=== PATIENT | female | born 1940 | race Caucasian/White ===

== ENCOUNTER 2019-03-15 05:30 | Observation (INO) ==
--- NOTE | 2019-03-15 06:04 | PROVIDER DOCUMENTATION ---
HPI-Chest Pain - General Chief Complaint: Chest Pain Stated Complaint: ARM PAIN/CHEST PAIN/NUMBNESS Time Seen by Provider: 03/15/19 05:48 Source: patient, family Allergies/Adverse Reactions: Patient Allergies Allergy/AdvReac Type Severity Reaction Status Date / Time Penicillins Allergy Mild RASH Verified 03/15/19 05:57 Sulfa (Sulfonamide Allergy Mild reyes Verified 03/15/19 05:57 Antibiotics) cefaclor [From Ceclor] Allergy Unknown Unknown Verified 03/15/19 05:57 codeine AdvReac Mild sick to Verified 03/15/19 05:57 stomach morphine AdvReac Mild sick to Verified 03/15/19 05:57 stomach nitrofurantoin AdvReac Mild upset Verified 03/15/19 05:57 [From Macrobid] stomach nitrofurantoin AdvReac Mild upset Verified 03/15/19 05:57 macrocrystalline * stomach [From Macrobid] Home Medications: Home Medication List Medication Instructions Recorded Confirmed Last Taken Type Amlodipine [Norvasc] 10 mg PO QAM 02/02/13 03/15/19 06/07/17 History Levothyroxine [Synthroid] 112 microgm PO QAM 02/02/13 03/15/19 06/07/17 History Metoprolol Succinate E.r. [Toprol 100 mg PO QAM 02/02/13 03/15/19 06/07/17 History Xl] Aspirin [Ecotrin] 81 mg PO QAM 06/28/15 03/15/19 06/07/17 History Calcium Carbonate [Calcium] 600 mg PO QAM 06/28/15 03/15/19 06/07/17 History SIMVAstatin [Zocor] 10 mg PO QHS #30 tablet 06/28/15 03/15/19 06/06/17 Rx Cholecalciferol (Vitamin D3) 2,000 units PO QAM 09/06/16 03/15/19 06/07/17 History [Vitamin D3] Fexofenadine HCl [Allergy Relief] 180 mg PO QAM 09/06/16 03/15/19 06/07/17 History Metformin E.r. [Glucophage Xr] 500 mg PO QAM 09/06/16 03/15/19 06/07/17 History Irbesartan 300 mg PO QAM 11/12/16 03/15/1918 History - History of Present Illness-CP Nature of Presenting Problem: Patient is a 78 year old white female with cognitive dysfunction,hyperlipidemia,diabetes, and recurrent noncardiac chest pain for past year, already evaluated by heart cath in [place] which showed no blockages, who presents with same anterior chest pain since tonight. Here with . Chest Pain Radiation: reports: no radiation Quality of Pain: reports: other (unable to describe) Onset/Duration: other (over 1 year ago) Review of Systems - Adult - REVIEW OF SYSTEMS - ADULT ROS:: limited per condition Constitutional: denies: chills, fever Eyes: reports: no symptoms reported Ears, Nose, Mouth & Throat: reports: no symptoms reported Cardiovascular: reports: chest pain Respiratory: reports: no symptoms reported Gastrointestinal: reports: no symptoms reported Genitourinary: reports: no symptoms reported Musculoskeletal: reports: no symptoms reported Integumentary: reports: no symptoms reported Neurological: reports: no symptoms reported Psychiatric: reports: no symptoms reported Endocrine: reports: no symptoms reported Hematologic/Lymphatic: reports: no symptoms reported Allergic/Immunologic: reports: no symptoms reported All Other Systems: Reviewed and Negative Past History - Adult - PAST MEDICAL HISTORY-ADULT Review of Records: reports: Old Records Reviewed, Nursing Assessment Review, Medications Reviewed, Social history reviewed & non-contributory. Major Childhood Illnesses: reports: denies history Cardiovascular: reports: cardiac disease, HTN Respiratory: reports: denies history Gastrointestinal: reports: denies history Obstetrical/Gynecological: reports: denies history Genitourinary: reports: denies history Musculoskeletal: reports: denies history Neurological: reports: denies history Endocrine/Immune: reports: denies history Other Conditions: reports: cataract/glaucoma, eye problems/injury - PRIOR SURGERIES/PROCEDURES Surgical/Procedure History: reports: breast - IMMUNIZATION STATUS Childhood Immunizations: See Nurse Assessment Flu Vaccine: See Nurse Assessment - FAMILY HISTORY Family History: reviewed, not pertinent - SOCIAL HISTORY Smoking: denies Substance Use: denies Alcohol Use Frequency: never Living Situation: family Physical Exam-General - CONSTITUTIONAL General Appearance: alert, no apparent distress, other (demented, poor recall, flat affect) - EYES Eyes: other (clear) - HEAD, EARS, NOSE, MOUTH & THROAT HENMT: moist mucous membranes - NECK Neck: non-tender, full range of motion, supple - RESPIRATORY Respiratory: lungs clear, no respiratory distress, no accessory muscle use - CARDIOVASCULAR Cardiovascular: regular rate, rhythm - GASTROINTESTINAL (ABDOMEN) Abdominal Exam: normal bowel sounds, non tender, soft - LYMPHATIC Lymphatic: no adenopathy - MUSCULOSKELETAL Back Exam: normal inspection, no CVA tenderness Extremity: normal range of motion, non-tender - SKIN Integumentary: normal color, normal turgor, warm/dry - NEUROLOGIC Neurologic: grossly normal - PSYCHIATRIC Psych/Mental Status: oriented x 3, anxious - HEART Score HEART Score: History: Moderately Suspicious HEART Score: ECG: Normal HEART Score: Age: > or = 65 Years HEART Score: Risk Factors for Atherosclerotic Disease: 1 or 2 Risk Factors HEART Score: Troponin: < or = Normal Limit Total HEART Score:: 4 Progress - PLAN OF CARE/RESULTS Progress/Plan/Lab Results: Vital Signs - 8 hr 03/15/19 05:32 03/15/19 05:46 03/15/19 05:48 Temperature 97.5 F L Pulse Rate 92 H 89 Respiratory Rate 20 20 Blood Pressure 161/80 161/80 O2 Sat by Pulse Oximetry 99 99 03/15/19 06:00 03/15/19 07:00 03/15/19 07:01 Temperature Pulse Rate 86 73 74 Respiratory Rate 21 18 19 Blood Pressure 137/69 O2 Sat by Pulse Oximetry 98 96 97 03/15/19 07:28 03/15/19 07:31 Temperature Pulse Rate 82 76 Respiratory Rate 17 17 Blood Pressure 161/71 147/62 O2 Sat by Pulse Oximetry 99 98 Laboratory Results - last 24 hr 03/15/19 03/15/19 03/15/19 06:16 06:16 06:16 WBC 4.88 RBC 5.03 Hgb 14.3 Hct 43.2 MCV 85.9 MCH 28.4 MCHC 33.1 RDW Std Deviation 14.0 Plt Count 193 MPV 12.0 H Neut % (Auto) 50.4 Lymph % (Auto) 42.2 [place] % (Auto) 6.4 Eos % (Auto) 0.8 Baso % (Auto) 0.2 Neut # (Auto) 2.46 Lymph # (Auto) 2.06 [place] # (Auto) 0.31 Eos # (Auto) 0.04 Baso # (Auto) 0.01 D-Dimer, Quantitative Sodium Potassium Chloride Carbon Dioxide Anion Gap BUN Creatinine Estimated GFR/1.73 m2 BUN/Creatinine Ratio Glucose Calculated Osmolality Calcium Total Bilirubin AST ALT Alkaline Phosphatase Creatine Kinase 39 Troponin T < 0.010 Total Protein Albumin Globulin Albumin/Globulin Ratio Urine Source Urine Color Urine Turbidity Urine pH Ur Specific [place] Urine Protein Ur Glucose (Stick) Ur Ketones (Stick) Urine Blood Urine Nitrite Urine Bilirubin Urobilinogen Dipstick Urine Leukocytes Urine WBC (Auto) Urine RBC (Auto) U Epithel Cells (Auto) Urine Bacteria (Auto) 03/15/19 03/15/19 03/15/19 06:16 06:16 07:38 WBC RBC Hgb Hct MCV MCH MCHC RDW Std Deviation Plt Count MPV Neut % (Auto) Lymph % (Auto) [place] % (Auto) Eos % (Auto) Baso % (Auto) Neut # (Auto) Lymph # (Auto) [place] # (Auto) Eos # (Auto) Baso # (Auto) D-Dimer, Quantitative 0.53 H Sodium 138 Potassium 3.9 Chloride 98 Carbon Dioxide 26 Anion Gap 14 BUN 10 Creatinine 0.7 Estimated GFR/1.73 m2 > 60 BUN/Creatinine Ratio 14 Glucose 124 H Calculated Osmolality 276 Calcium 10.0 Total Bilirubin 1.12 H AST 19 ALT 12 Alkaline Phosphatase 59 Creatine Kinase Troponin T Total Protein 8.0 Albumin 5.0 Globulin 3.0 Albumin/Globulin Ratio 1.7 Urine Source CLEAN CATCH Urine Color STRAW Urine Turbidity CLEAR Urine pH 7.5 Ur Specific [place] 1.007 Urine Protein NEGATIVE Ur Glucose (Stick) NEGATIVE Ur Ketones (Stick) NEGATIVE Urine Blood TRACE A Urine Nitrite NEGATIVE Urine Bilirubin NEGATIVE Urobilinogen Dipstick NORMAL Urine Leukocytes NEGATIVE Urine WBC (Auto) <10 Urine RBC (Auto) <10 U Epithel Cells (Auto) <10 Urine Bacteria (Auto) NEGATIVE Orders Category Date Time Status Admit - [facility] Routine AdmDCTranf 03/15/19 08:19 Active Cardiac Monitoring DIRECTED Care 03/15/19 05:49 Active FSBS/Accucheck Result AC + HS Care 03/15/19 08:19 Active Notify MD if DIRECTED Care 03/15/19 08:19 Active NPO Except MEDICATIONS Diet 03/15/19 08:01 Active CHEST-PORTABLE [RAD] Stat Exams 03/15/19 05:[address] ANGIOGRM PULMONARY ARTERIES [CT] Stat Exams 03/15/19 07:58 Ordered MYOCARDIAL PERF SCAN, STR/REST [NM] Stat Exams 03/15/19 08:01 Ordered A1C HGB W EST AVG GLUCOSE [CHEM] Stat Lab 03/15/19 06:16 Received CBC WITH ELECTRONIC DIFF [HEME] Stat Lab 03/15/19 06:16 Completed CK PROFILE [SP CHEM] Stat Lab 03/15/19 06:16 Completed CK TOTAL [CHEM] Q8H Lab 03/16/19 00:30 Uncollected CK TOTAL [CHEM] Q8H Lab 03/15/19 08:30 Uncollected CK TOTAL [CHEM] Q8H Lab 03/15/19 16:30 Uncollected CMP [COMPREHENSIVE METABOLIC PANEL] [CHEM] Stat Lab 03/15/19 06:16 Completed D-DIMER [COAG] Stat Lab 03/15/19 06:16 Completed LIPID PROFILE W/DIR LDL [LIPIDS] Stat Lab 03/15/19 06:16 Received TROPONIN T Q8H Lab 03/16/19 00:30 Uncollected TROPONIN T Q8H Lab 03/15/19 08:30 Uncollected TROPONIN T Q8H Lab 03/15/19 16:30 Uncollected TROPONIN T Stat Lab 03/15/19 06:16 Completed UA NIMS W/REFLEX CULT [URINALYSIS] Stat Lab 03/15/19 07:38 Completed Acetaminophen [Tylenol] Med 03/15/19 08:19 Active 650 mg PO Q6H PRN PRN Amlodipine [Norvasc] Med 03/15/19 09:00 Active 10 mg PO QAM Aspirin EC Med 03/16/19 09:00 Active 81 mg PO DAILY Calcium Carbonate [Caltrate 600] Med 03/15/19 09:00 Ordered 600 mg PO QAM Cholecalciferol (Vitamin D3) [Vitamin D3] Med 03/15/19 09:00 Ordered 2,000 units PO QAM Enoxaparin [Lovenox] Med 03/15/19 08:19 Active 30 mg SUBQ Q24H Fexofenadine [Michelle] Med 03/15/19 09:00 Ordered 180 mg PO QAM Insulin Human Regular [Humulin R] Med 03/15/19 11:00 Active See Protocol SUBQ 0700,1100,1600,2100 Irbesartan Med 03/15/19 09:00 Ordered 300 mg PO QAM Levothyroxine [Synthroid] Med 03/15/19 09:00 Ordered 112 microgm PO QAM Metoprolol Succinate E.r. [Toprol Xl] Med 03/15/19 09:00 Ordered 100 mg PO QAM Morphine Med 03/15/19 08:19 Discontinued See Dose Instructions IV Q5M PRN PRN Nitroglycerin Sl [Nitroglycerin] Med 03/15/19 08:19 Active 0.4 mg SL Q5M PRN PRN Omeprazole [Prilosec] Med 03/16/19 07:00 Active 20 mg PO DAILY@0700 Ondansetron [Zofran] Med 03/15/19 08:19 Active 4 mg IV Q4H PRN PRN SIMVAstatin [Zocor] Med 03/15/19 21:00 Ordered 10 mg PO QHS Oxygen Device Stat Oth 03/15/19 05:51 Active EKG [EKG] Routine Ther 03/16/19 08:14 Ordered EKG [EKG] Routine Ther 03/15/19 08:01 Ordered EKG [EKG] Stat Ther 03/15/19 05:49 Draft Echo Spec/Color Doppler Routine Ther 03/15/19 08:19 Ordered Venous U/S Bilateral Legs Routine Ther 03/15/19 07:58 Ordered Transfer/Admit Order [TRANSFER] Routine Transfer 03/15/19 08:14 Ordered Result Diagrams: 03/15/19 06:16 03/15/19 06:16 - REASSESSMENT Reassessment #1 Time Reassessed: 07:36 (Assumed care @ S/O. Seen and she is a very vague historian. Has has epigastric/lower sternal CP intermitently for a month. She cannot reliably characterize pain, duration. Nothing makes worse, appears to be relieved with rest. Lungs clear. Heart RRR) - EKG 1 Time of EKG reading by physician:: 05:46 EKG Read and Signed by:: Milton Giordano Rate: 88 Rhythm: NSR [place]: normal QRS: LVH Prior EKG Comparison: unchanged from prior (of 05/2017) Comments: no STEMI - CONSULTS/PCP/HOSPITALIST Notification #1 *Consult/PCP/Hospitalist*: Hospitalist Time Discussed: 08:10 Consult Disposition: Will see in ED, Admit - CHANGE OF SHIFT REPORT (ED Provider) 1 Report Given and Care Transferred to:: Dr. Pablo Time of Transfer: 07:00 Items Pending: Labs, XRAY Results Departure - Departure Date of Disposition Decision: 03/15/19 Time of Disposition Decision: 08:15 DIAGNOSIS: Chest pain Disposition: ADMITTED INPATIENT 09 Certified Medical Emergency: Emergent Condition: Good Referrals and Follow-Ups: Gonzalo Murillo DO [Primary Care Provider] - - Critical Care Note This patient required my direct & personal management of CC.: No Attestation - Physician/ SHALOM Attestation Patient care was provided by Advanced Practice Provider:: No The physician spent face to face time with patient:: Yes Advanced Practice Provider documentation review:: Supervising physician onsite and consulted in the evaluation and care of this patient. The physician did have a face to face encounter with the patient.
--- NOTE | 2019-03-15 06:40 | Diag Imaging Result Doc PS360 ---
EXAM: CHEST-PORTABLE HISTORY: cp TECHNIQUE: Single view COMPARISON: 06/07/2017 FINDINGS: Poor inspiratory effort. Scarring or atelectasis in the left lung base. The heart is not enlarged. The vessels are not distended. There are no infiltrates. No effusion identified. There are surgical clips in the right axilla. IMPRESSION: Left basilar scarring or atelectasis. Electronically signed by Steve Little 03/15/2019 6:37 AM
[2019-03-15 06:42] LABS: BASO# 0.01 X1000 (0.0-0.2); BASO% 0.2 % (0.0-0.8); EOS# 0.04 X1000 (0.0-0.7); EOS% 0.8 % (0.0-10.0); HEMATOCRIT 43.2 % (37.0-47.0); HEMOGLOBIN 14.3 g/dL (12.0-16.0); LYMPH# 2.06 X1000 (1.2-3.4); LYMPH% 42.2 % (20.5-51.1); MCH 28.4 PG (27-31); MCHC 33.1 g/dL (33-37); MCV 85.9 FL (81-99); MONO# 0.31 X1000 (0.11-0.59); MONO% 6.4 % (1.7-9.3); NEUT# 2.46 X1000 (1.4-6.5); NEUT% 50.4 % (42.2-75.2); PLT 193 X1000 (130-400); RBC 5.03 XMIL (4.2-5.4); WBC 4.88 X1000 (4.8-10.8)
[2019-03-15 07:00] LABS: AGAP 14; ALB/GLOB RATIO 1.7; ALKALINE PHOSPHATASE 59 U/L (32-104); BUN 10 mg/dL (8-22); CHLORIDE 98 mmol/L (98-107); COSMO 276; CREATININE 0.7 mg/dL (0.5-0.9); ESTIMATED GFR > 60; GLUCOSE 124 mg/dL (70-104); GOT 19 U/L (10-30); GPT 12 U/L (10-36); POTASSIUM 3.9 mmol/L (3.5-5.1); SODIUM 138 mmol/L (136-145); TCO2 26 mmol/L (25-35); TOTAL BILIRUBIN 1.12 mg/dL (0.20-1.00)
--- NOTE | 2019-03-15 07:56 | EKG Report ---
Test Performed on : 03/15/2019 05:45:01 AM Test Reason : pain Blood Pressure : / mmHG Vent. Rate : 088 BPM Atrial Rate : 088 BPM P-R Int : 162 ms QRS Dur : 076 ms QT Int : 376 ms P-R-T Axes : 047 -11 034 degrees QTc Int : 454 ms Normal sinus rhythm. Minimal voltage criteria for LVH, may be normal variant Borderline ECG When compared with ECG of 07-JUN-2017 20:08, No significant change was found Unconfirmed Result
[2019-03-15 08:00] LABS: URINE SOURCE CLEAN CATCH
[2019-03-15 08:07] LABS: BILIRUBIN URINE NEGATIVE (NEGATIVE); BLOOD URINE TRACE (NEGATIVE); COLOR STRAW; GLUCOSE URINE NEGATIVE (NEGATIVE); KETONE URINE NEGATIVE (NEGATIVE); LEUKOCYTES URINE NEGATIVE (NEGATIVE); NITRITE URINE NEGATIVE (NEGATIVE); PH URINE 7.5; PROTEIN URINE NEGATIVE (NEGATIVE); SP GRAVITY URINE 1.007; TURBIDITY URINE CLEAR (CLEAR); UR EPITHELIAL CELLS <10 /HPF (<10); URINE BACTERIA NEGATIVE /HPF; URINE RBC <10 /HPF (<10); URINE WBC <10 /HPF (<10); UROBILINOGEN URINE NORMAL (NORMAL)
[2019-03-15] MEDS ORDERED: TYLENOL PO PRN (08:19)
[2019-03-15] MEDS ORDERED: NITROGLYCERIN SL PRN (08:19)
[2019-03-15] MEDS ORDERED: ZOFRAN IV PRN (08:19)
[2019-03-15] MEDS ORDERED: MORPHINE IV PRN (08:19)
[2019-03-15 08:45] LABS: HEMOGLOBIN A1C 6.1 % (4.8-6.0)
--- NOTE | 2019-03-15 09:14 | Diag Imaging Result Doc PS360 ---
EXAM: CT ANGIOGRM PULMONARY ARTERIES INDICATION: chest pain; elevated ddimer TECHNIQUE: This exam was performed using automated exposure control, adjustment of mA or kV according to patient size, and/or use of iterative reconstruction technique. Thin section axial images and 3-D MIPS were obtained. COMPARISON: 03/14/2011 FINDINGS: There is no evidence of pulmonary embolism. There is no evidence of aortic dissection or aneurysm. There are stable calcified mediastinal and left hilar lymph nodes indicating prior granulomatous disease. There is no evidence of significant lymphadenopathy, otherwise. There is no cardiomegaly. There is linear scarring associated with the left lower lobe that is also seen on the previous study. The linear scar becomes slightly nodular at the left lung base. This portion is out of the [id number] on the previous study. The lungs are clear, otherwise. There is no pleural fluid collection and no pneumothorax. Limited views of the upper abdomen reveals a simple renal cyst on the right. There are calcified granulomata throughout the liver and spleen. IMPRESSION: 1.Linear scarring involving the left lower lobe that becomes slightly nodular at the left lung base. The visualized portion of this scar appears stable as compared to the previous study. 2.No evidence of pulmonary embolism or other definite acute chest pathology, otherwise. Electronically signed by Nolberto Winston 03/15/2019 9:11 AM
--- NOTE | 2019-03-15 09:57 | EKG Report ---
Test Performed on : 03/15/2019 09:22:23 AM Test Reason : chest pain Blood Pressure : / mmHG Vent. Rate : 087 BPM Atrial Rate : 087 BPM P-R Int : 162 ms QRS Dur : 068 ms QT Int : 380 ms P-R-T Axes : 070 -19 032 degrees QTc Int : 457 ms Normal sinus rhythm. Nonspecific ST and T wave abnormality Abnormal ECG When compared with ECG of 15-MAR-2019 05:45, (Unconfirmed) No significant change was found Confirmed by Miesha PARSON, Jere ([id number]) on 03/15/2019 4:55:33 PM
[2019-03-15] MEDS: AVAPRO PO SCH (10:07)
[2019-03-15] MEDS: VITAMIN D PO SCH (10:07)
[2019-03-15] MEDS: CALTRATE 600 PO SCH (10:07)
[2019-03-15] MEDS: SYNTHROID PO SCH (10:07)
[2019-03-15] MEDS: ALLEGRA PO SCH (10:08)
[2019-03-15] MEDS: NORVASC PO SCH (10:09)
[2019-03-15] MEDS: LOVENOX SUBQ SCH (10:10)
[2019-03-15] MEDS: NS 1,000 ML IV SCH (10:13)
[2019-03-15] MEDS: TOPROL XL PO SCH (10:13)
[2019-03-15] MEDS ORDERED: NS 1,000 ML ONE (10:19)
[2019-03-15] MEDS: HUMULIN R SUBQ SCH ×3 (11:00→23:35)
[2019-03-15] MEDS ORDERED: LEXISCAN ONE (11:28)
[2019-03-15] MEDS ORDERED: AMINOPHYLLINE ONE (11:40)
--- NOTE | 2019-03-15 13:06 | ECHO REPORT ---
ORDER DATE: 03/15/2019 INDICATION: Chest pain. FINDINGS: 1. The right atrium appears normal in size at 3.5 cm. 2. Trace tricuspid regurgitation. Insufficient data to estimate RV systolic pressure. 3. Normal RV size and systolic function. 4. No significant pulmonic insufficiency. 5. Normal left atrial size with a volume index of 17.5. 6. No mitral valve prolapse. Trace mitral regurgitation. No mitral stenosis. 7. Normal LV size with an end-diastolic dimension between 4.5 and 5 cm. Endocardial borders were somewhat difficult to visualize. Normal wall thicknesses with a posterior and interventricular septal wall thickness of 0.6 and 0.9 cm respectively. Normal LV systolic function. The estimated EF is on the order of 60% with normal wall motion. 8. Aortic valve opens well. No evidence of stenosis or insufficiency. 9. Aorta appears in normal visualized segments. 10. There is an anterior echo-free space suggestive of pericardial fat. No evidence of pericardial effusion. cc: MD Macie Ugarte CRNP
--- NOTE | 2019-03-15 13:09 | HISTORY AND PHYSICAL ---
PRIMARY CARE PROVIDER: Dr. Murillo. CHIEF COMPLAINT: Chest pain with hot flashes, bilateral arm numbness and tingling, and headaches. HISTORY OF PRESENT ILLNESS: Ms. Rosa Oakes is a 78-year-old female with a medical history of hypertension, right breast cancer, hyperlipidemia, GERD, hypothyroidism, and diabetes mellitus type 2. She states for 2 weeks she has been having intermittent midsternal chest pains, does not radiate, although she has had some bilateral arm numbness and headaches. She states that the arm numbness and headaches have been going on for about 2 to 3 weeks after falling out of her bed, but never had it evaluated. Otherwise, there are no other complaints. We are going to work her up for cardiac rule out. We will get a head CT and neck CT to make sure there is no injury. PAST MEDICAL HISTORY: 1. Hypertension. 2. Right breast cancer. 3. Hyperlipidemia. 4. GERD. 5. Hypothyroidism. 6. Diabetes mellitus type 2. PAST SURGICAL HISTORY: 1. Right mastectomy. 2. Right lymph node removal after the mastectomy. 3. Bilateral cataracts. 4. Bladder tack. 5. Hysterectomy. 6. Cholecystectomy. 7. Bilateral knee replacements. 8. Hemorrhoidectomy. SOCIAL HISTORY: Denies tobacco, alcohol or illicit drug use. She uses a cane. She lives with her who is currently at the bedside. FAMILY HISTORY: Mother had heart disease. Father had heart disease. ALLERGIES: Penicillin, sulfa, Ceclor, codeine, morphine, and Macrobid. HOME MEDICATIONS: 1. Fexofenadine 180 mg p.o. daily. 2. Calcium carbonate 600 mg p.o. daily. 3. Aspirin 81 mg p.o. daily. 4. Metformin 500 mg p.o. daily. 5. Irbesartan 300 mg p.o. daily. 6. Norvasc 10 mg p.o. daily. 7. Synthroid 112 mcg p.o. daily. 8. Toprol-XL 100 mg p.o. daily. 9. Vitamin D3 2000 units p.o. daily. 10. Zocor 10 mg p.o. nightly. REVIEW OF SYSTEMS: Fourteen point review of systems are complete, and all are negative except for those mentioned above in HPI. PHYSICAL EXAMINATION: VITAL SIGNS: Temperature 97.5 degrees, heart rate 80, respiratory rate 17, blood pressure 137/79, and O2 saturation 98% on room air. GENERAL: Ms. Rosa Oakes is a 78-year-old female. She is in no acute distress. She is able to answer questions appropriately. HEENT: Atraumatic, normocephalic. Pupils equal, round, and reactive to light. Extraocular movements intact. Mucous membranes are moist. NECK: Trachea midline. CARDIOVASCULAR: S1, S2. Regular rate and rhythm. No rubs, gallops, murmurs. Trace lower extremity edema. +2 dorsalis and radial pulses. Negative JVD or carotid bruits. PULMONARY: Clear to auscultation bilateral breath sounds. No accessory muscle use or work of breathing noted. GI: Abdomen soft and nontender. Nondistended. Positive bowel sounds x4. EXTREMITIES: Moves all extremities equally. Decreased range of motion. NEUROLOGIC: A and O x3. Follows commands. Sensory is intact except for bilateral hands. She has got numbness. SKIN: Warm, dry, intact. LABORATORY DATA: White blood cells 4000, hemoglobin 14, hematocrit 43, and platelet count 193,000. D-dimer 0.53. Sodium 138, potassium 3.9, BUN 10, creatinine 0.7, and glucose 124. Hemoglobin A1c is 6.1, calcium 10. Bilirubin is 1.12, AST 19, ALT 12, CK 39, troponin less than 0.01. Albumin is 5.0, triglycerides 95, and total cholesterol 140. Urinalysis trace blood. IMAGING: EKG normal sinus rhythm, rate 88, QTc 454. No ST changes. A repeat EKG around 8:00 in the morning with normal sinus rhythm, rate 87, and QTc 457. No ST elevations. Pulmonary arteriogram linear scarring involving the left lower lobe that becomes slightly nodular at the left lung base. The visualized portion of the scar appears to be stable compared to a previous image. No pulmonary emboli. Chest x-ray with left basilar scarring or atelectasis. ASSESSMENT AND PLAN: 1. Atypical chest pain with some shortness of breath. So far, cardiac workup is negative. We are going to send her for a stress test. If it is negative, she may be able to go home. We will continue aspirin and statin. There is no medical history of coronary disease. 2. Complaints of headache with bilateral arm numbness and tingling after she had a fall out of her bed about 2 to 3 weeks ago. We will get a head and cervical spine CT to evaluate any possible causes from that. 3. Hypertension. Continue home medications. 4. GERD. Continue proton pump inhibitor. 5. Hyperlipidemia. Continue statin. 6. Hypothyroidism. Continue Synthroid. 7. Diabetes mellitus type 2. We will do pattern blood glucoses and sliding scale insulin. 8. Elevated D-dimer. The CT of the lung was negative for PE. We will get ultrasound of the lower extremities. 9. Deep venous thrombosis prophylaxis with Lovenox. Dictated by DENISHA Dunlap for Juice Bose MD Addendum: Patient seen and examined by myself. Agree with DENISHA note. It reflects my assessment and plan. Patient is being admitted to hospital for chest pain workup which is on progress. If all return negative will discharge patient. cc: DENISHA Dunlap MD [facility]
--- NOTE | 2019-03-15 13:48 | Diag Imaging Result Doc PS360 ---
EXAM: CT HEAD/C-SPINE W/O CONTRAST 03/15/2019 HISTORY: headaches and bilateral LE numb/tingling TECHNIQUE: This exam was performed using automated exposure control, adjustment of mA or kV according to patient size, and/or use of iterative reconstruction technique. COMMENT: There are calcifications in the left vertebral and both internal carotid arteries. There is no evidence of mass effect, bleed, or abnormal extra-axial fluid collection. There is a lacunar lucency in the external capsule on the left. The calvarium is intact. The visualized paranasal sinuses are clear. Cervical spine: The facets are aligned. There is no prevertebral soft tissue swelling. There is a Schmorl node in the upper endplate of C7. There are degenerative disc changes with posterior osteophyte formation at C5-6, C6-7, and C7-T1. No evidence of fracture or subluxation is present. IMPRESSION: No evidence of acute intracranial or cervical spine disease. Electronically signed by Rigo Billingsley 03/15/2019 1:45 PM
--- NOTE | 2019-03-15 14:35 | Diag Imaging Result Document ---
PROCEDURE NAME: MYOCARDIAL PERF SCAN, STR/REST - 03/15/2019 INDICATION: Chest pain. PROCEDURES PERFORMED: 1. Lexiscan stress. 2. One-day stress rest myocardial perfusion imaging (rest dose 12.2 millicuries, stress dose 37.4 mCi). FINDINGS: LEXISCAN STRESS RESULTS: 1. Baseline EKG shows sinus. 2. Lexiscan stress does not demonstrate any clear evidence of ischemic related EKG changes or significant arrhythmias. PERFUSION IMAGING RESULTS: 1. No evidence of abnormal extracardiac uptake. 2. TID ratio 0.97. 3. Perfusion imaging is somewhat difficult in this patient secondary to gut uptake in the inferior wall. There is no clear evidence of ischemic changes. Wall motion appears to be intact in all segments. 4. Normal ejection fraction of 76%. End-diastolic volume 64 and systolic volume 15. Normal wall motion. cc: MD Macie Ugarte CRNP
[2019-03-15] MEDS ORDERED: ZOCOR PO SCH (21:00)
[2019-03-16 06:32] LABS: BASO# 0.02 X1000 (0.0-0.2); BASO% 0.4 % (0.0-0.8); EOS# 0.16 X1000 (0.0-0.7); EOS% 3.3 % (0.0-10.0); HEMATOCRIT 40.4 % (37.0-47.0); HEMOGLOBIN 13.2 g/dL (12.0-16.0); IMM GRAN# 0.02 X1000 (0.0-0.04); IMM GRAN% 0.4 % (0.0-0.5); LYMPH# 1.97 X1000 (1.2-3.4); LYMPH% 41.2 % (20.5-51.1); MCH 28.2 PG (27-31); MCHC 32.7 g/dL (33-37); MCV 86.3 FL (81-99); MONO# 0.44 X1000 (0.11-0.59); MONO% 9.2 % (1.7-9.3); MPV 11.5 FL (7.4-10.4); NEUT# 2.17 X1000 (1.4-6.5); NEUT% 45.5 % (42.2-75.2); PLT 198 X1000 (130-400); RBC 4.68 XMIL (4.2-5.4); RDW 13.8 % (11.5-14.5); WBC 4.78 X1000 (4.8-10.8)
[2019-03-16 06:54] LABS: AGAP 15; ALB/GLOB RATIO 1.4; ALBUMIN 3.9 g/dL (3.5-5.0); ALKALINE PHOSPHATASE 46 U/L (32-104); BUN 8 mg/dL (8-22); CALCIUM 9.2 mg/dL (8.8-10.2); CHLORIDE 101 mmol/L (98-107); COSMO 280; CREATININE 0.6 mg/dL (0.5-0.9); ESTIMATED GFR > 60; GLUCOSE 111 mg/dL (70-104); GOT 16 U/L (10-30); GPT 9 U/L (10-36); MAGNESIUM 1.6 mg/dL (1.5-2.7); POTASSIUM 3.4 mmol/L (3.5-5.1); SODIUM 141 mmol/L (136-145); TCO2 25 mmol/L (25-35); TOTAL BILIRUBIN 1.03 mg/dL (0.20-1.00); TOTAL PROTEIN 6.7 g/dL (6.3-8.3)
[2019-03-16] MEDS ORDERED: PRILOSEC PO SCH (07:00)
--- NOTE | 2019-03-16 07:04 | EKG Report ---
Test Performed on : 03/16/2019 06:55:31 AM Test Reason : chest pain Blood Pressure : / mmHG Vent. Rate : 076 BPM Atrial Rate : 076 BPM P-R Int : 154 ms QRS Dur : 072 ms QT Int : 408 ms P-R-T Axes : 061 -13 014 degrees QTc Int : 459 ms Normal sinus rhythm. Normal ECG When compared with ECG of 15-MAR-2019 09:22, No significant change was found Confirmed by Edi PARSON, Diaz Prince ([id number]) on 03/21/2019 9:24:30 AM
[2019-03-16] MEDS: HUMULIN R SUBQ SCH (07:14)
[2019-03-16] MEDS: NS 1,000 ML IV SCH (07:32)
[2019-03-16] MEDS: SYNTHROID PO SCH ×2 (07:32→10:00)
[2019-03-16 08:37] VITALS: BP 144/54
[2019-03-16] MEDS ORDERED: ASPIRIN EC PO SCH (09:00)
[2019-03-16] MEDS: LOVENOX SUBQ SCH (09:59)
[2019-03-16] MEDS: VITAMIN D PO SCH (09:59)
[2019-03-16] MEDS: AVAPRO PO SCH (09:59)
[2019-03-16] MEDS: ALLEGRA PO SCH (09:59)
[2019-03-16] MEDS: TOPROL XL PO SCH (09:59)
[2019-03-16] MEDS: CALTRATE 600 PO SCH (09:59)
[2019-03-16] MEDS: NORVASC PO SCH (09:59)
--- NOTE | 2019-03-16 11:40 | DISCHARGE SUMMARY ---
ADMISSION DATE: 03/15/2019 DISCHARGE DATE: 03/16/2019 PRIMARY CARE PROVIDER: Dr. Gonzalo Murillo. Consultations: None. PERTINENT PROCEDURES: 1. Pulmonary arteriogram: Linear scarring involving the left lower lobe that becomes slightly nodular at the left lung base. The visualized portion of the scar appears stable compared to previous study. No evidence of PE or other acute chest pathology. 2. Myocardial perfusion scan: No evidence of abnormal uptake. No clear evidence of ischemic changes. 3. Echocardiogram: Shows an EF of 60% with normal wall motion. 4. Cervical neck CT: Showed no evidence of acute intracranial or cervical spine disease. DISCHARGE DIAGNOSES: 1. Atypical chest pain with some shortness of breath. Cardiac workup has been completely negative. 2. Complaint of headache with bilateral arm numbness and tingling after falling out of bed 2 to 3 weeks ago. Cervical head and spine CT were negative. 3. Hypertension. Continue home medications. 4. Gastroesophageal reflux disease. Continue proton pump inhibitor. 5. Hyperlipidemia. Continue statin. 6. Hypothyroidism. Continue Synthroid. 7. Diabetes mellitus type 2. Continue home regimen. 8. Elevated D-dimer. CT of the chest ruled out pulmonary embolus. HOSPITAL COURSE: Briefly, Ms. Oakes is a 78-year-old female with a past medical history of hypertension, right breast cancer, hyperlipidemia, GERD, hypothyroidism, diabetes mellitus type 2, who reported for 2 weeks had been having intermittent midsternal chest pain that did not radiate with some bilateral arm numbness and headaches after falling out of her bed, but never got evaluated. We did a complete cardiac rule up, as well as a head and neck CT that did not show any acute injury. She had a full cardiac workup that was negative. She was ruled out for PE, as well as DVT with venous Dopplers. She will be discharged back home today to follow up with her primary care provider. VITAL SIGNS: At time of her discharge, temperature is 97.9 degrees heart rate 80, respirations 20, blood pressure 144/54, O2 is 100% on room air. DISCHARGE DIET: Diabetic. DISCHARGE MEDICATIONS: 1. Allergy relief 180 mg p.o. q.a.m. 2. Calcium 600 mg p.o. q.a.m. 3. Aspirin 81 mg p.o. q.a.m. 4. Metformin ER 500 mg p.o. q.a.m. 5. Avapro 300 mg p.o. q.a.m. 6. Norvasc 10 mg p.o. q.a.m. 7. Synthroid 112 mcg p.o. q.a.m. 8. Toprol-XL 100 mg p.o. q.a.m. 9. Vitamin D 3 2000 units p.o. q.a.m. 10. Zocor 10 mg p.o. at bedtime. 11. Prilosec 20 mg p.o. daily. FOLLOWUP: Ms. Oakes is being discharged back home with self care. She is to follow up with her primary care provider within 1 to 2 weeks, Dr. Gonzalo Murillo. She can return to the ED or call 911 for any worsening of symptoms. Dictated by DENISHA Cooley for Juice Bose MD Addendum: Patient seen and examined by myself. Agree with DENISHA note. It reflects my assessment and plan. Patient is being released in stable condition. Will be seen by PCP in a week. cc: MD Gonzalo Chaney, DO BARRAZAD
--- NOTE | 2019-03-18 11:08 | Extremity Venous Study ---
PROCEDURE NAME: Venous U/S Bilateral Legs - 03/15/2019 BILATERAL LOWER EXTREMITY VENOUS ULTRASOUND: CUSTOMER OPERATIONS SPECIALIST: Ronny. REQUESTING PHYSICIAN: Dr. Carrera. INDICATIONS: D-dimer 0.53. FINDINGS: Deep and superficial veins of bilateral lower extremities visualized along their course. Vessels are compressible with forward flow and no evidence of intraluminal thrombus. SUMMARY: No deep or superficial venous thrombosis in bilateral lower extremities. cc: MD Macie Magallon CRNP
== END 2019-03-16 12:03 | disposition home or self-care (01) ==
LOC: EDIPHOLD 05:30 → ED 05:30 → 4N 14:39
PROVIDERS: ATTEND Internal Medicine